=== PATIENT | male | born 1950 | race Caucasian/White ===

== ENCOUNTER 2018-09-22 21:07 | Emergency (ER) | payer MEDICAID ==
[~2018-09-22] VITALS: Ht 175.3 cm; Wt 70.0 kg
[2018-09-22 21:46] VITALS: BP 153/66
[2018-09-22] MEDS ORDERED: METHOCARBAMOL 750 MG TABLET PO ONE (23:30)
[2018-09-22] MEDS ORDERED: IBUPROFEN 600 MG TABLET PO ONE (23:30)
[2018-09-22] MEDS ORDERED: HYDROcodone/APAP 5/325 TABLET PO ONE (23:30)
[2018-09-22] MEDS ORDERED: METHOCARBAMOL 750 MG TABLET ONE (23:35)
[2018-09-22] MEDS ORDERED: HYDROcodone/APAP 5/325 TABLET ONE (23:35)
[2018-09-22] MEDS ORDERED: IBUPROFEN 200 MG TABLET ONE (23:35)
--- NOTE | 2018-09-23 00:17 | NUR ---
pt given taxi voucher to [address].
== END 2018-09-23 00:19 | disposition home or self-care (01) ==
LOC: ED 23:59
DX: G89.11 Acute pain due to trauma (principal); M25.511 Pain in right shoulder; M79.621 Pain in right upper arm; M25.551 Pain in right hip; M79.651 Pain in right thigh; M79.671 Pain in right foot; X58.XXXA Exposure to other specified factors, initial encounter; Y93.89 Activity, other specified; Y92.89 Other specified places as the place of occurrence of the external cause; Y99.8 Other external cause status
CPT/HCPCS: 99284

== ENCOUNTER 2018-10-19 16:14 | Emergency (ER) | payer MEDICARE, MEDICAID ==
[~2018-10-19] VITALS: Ht 175.3 cm; Wt 85.0 kg
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
--- NOTE | 2018-10-19 16:41 | NUR ---
cardiovascular called for stat exam per dr alston
[2018-10-19 17:06] LABS: BASOPHILS # (AUTO) 0.02 x10^3/uL (0-0.1); BASOPHILS % (AUTO) 0 % (0-1); EOSINOPHILS # (AUTO) 0.27 x10^3/uL (0-0.4); EOSINOPHILS % (AUTO) 4 % (1-7); LYMPHOCYTES # (AUTO) 1.95 x10^3/uL (1-3.4); LYMPHOCYTES % (AUTO) 27 % (22-44); MD NO; MEAN CORPUSCULAR HEMOGLOBIN 31.2 pg (27.5-34.5); MEAN CORPUSCULAR HGB CONC 33.3 g/dL (33.2-36.2); MEAN CORPUSCULAR VOLUME 93.9 fL (81-97); MEAN PLATELET VOLUME 7.3 fL (7.4-10.4); MONOCYTES % (AUTO) 8 % (2-9); NEUTROPHILS # (AUTO) 4.47 x10^3/uL (1.8-6.8); NEUTROPHILS % (AUTO) 61 % (42-75); PLATELET COUNT 430 x10^3/uL (130-400); RED BLOOD COUNT 4.25 x10^6/uL (4.38-5.82); RED CELL DISTRIBUTION WIDTH 15.3 % (9.4-14.8)
[2018-10-19 17:11] LABS: INTERNATIONAL NORMALIZED RATIO 0.95 (0.93-1.1)
[2018-10-19 17:13] LABS: ALANINE AMINOTRANSFERASE 25 U/L (12-78); ALBUMIN 3.3 g/dL (3.4-5.0); ANION GAP 6 mmol/L (5-15); CALCIUM 8.5 mg/dL (8.5-10.1); CHLORIDE 102 mmol/L (98-107); CREATININE 0.72 mg/dL (0.7-1.3)
--- NOTE | 2018-10-19 17:16 | NUR ---
US AT THE
[2018-10-19 17:17] LABS: ALKALINE PHOSPHATASE 111 U/L (45-117); BILIRUBIN,TOTAL 0.2 mg/dL (0.2-1.0); TOTAL PROTEIN 7.4 g/dL (6.4-8.2)
[2018-10-19 19:24] VITALS: BP 108/48
--- NOTE | 2018-10-19 19:24 | NUR ---
PT RESTING ON GURNEY, ALERT AND ANSWERS ALL QUESTIONS APPROPRIATELY, MONITORS IN PLACE, CALL LIGHT WITHIN REACH. ERP AT BEDSIDE FOR RECHECK
== END 2018-10-19 19:55 | disposition home or self-care (01) ==
LOC: ED 16:32
DX: I70.201 Unspecified atherosclerosis of native arteries of extremities, right leg (principal); G89.29 Other chronic pain; M25.551 Pain in right hip; F17.200 Nicotine dependence, unspecified, uncomplicated; Z72.9 Problem related to lifestyle, unspecified
CPT/HCPCS: 36415; 71045; 80053; 80307; 83880; 85025; 85610; 85730; 93005; 93922; 99284

== ENCOUNTER 2018-10-26 08:46 | Emergency (ER) | payer MEDICARE, MEDICAID ==
[~2018-10-26] VITALS: Ht 175.3 cm; Wt 55.8 kg
[2018-10-26 08:55] VITALS: BP 159/89
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
[2018-10-26] MEDS ORDERED: IBUPROFEN 200 MG TABLET PO ONE (09:30)
[2018-10-26] MEDS ORDERED: IBUPROFEN 200 MG TABLET ONE (09:45)
--- NOTE | 2018-10-26 10:39 | NUR ---
PT DISCHARGED WITH DISCHARE INSTRUCTIONS. PT YELLING AT ME " YOU CANT DISCHARGE ME, I CANT WALK, ITS COLD OUTSIDE. " PT GIVEN CLEAN CLOTHES AND AMBULATED TO WHEELCHAIR. PT THEN GIVEN TAXI VOUCHER TO [facility].
== END 2018-10-26 10:46 | disposition home or self-care (01) ==
LOC: ED 09:10
DX: M25.561 Pain in right knee (principal); M25.551 Pain in right hip; G89.29 Other chronic pain; I73.9 Peripheral vascular disease, unspecified; F17.200 Nicotine dependence, unspecified, uncomplicated
CPT/HCPCS: 99283